=== PATIENT | female | born 1965 | race Caucasian/White ===

== ENCOUNTER 2021-02-03 06:45 | Day surgery (SDC) | payer BC ==
[~2021-02-03] VITALS: Ht 157.5 cm; Wt 89.8 kg
[~2021-02-03 06:45] MED LIST: CALCIUM250 M1 PO; FISH OIL1000 MG PO; METFORMIN500 M2 PO; VITAMIN B-12500 MCG PO
[2021-02-03 08:22] VITALS: BP 104/52
== END 2021-02-03 08:25 | disposition home or self-care (01) | DRG 951 ==
LOC: ENDO 06:45
PROVIDERS: ATTEND Surgery
PROC: 0DJD8ZZ Inspection of Lower Intestinal Tract, Via Natural or Artificial Opening Endoscopic (ICD-10-PCS; principal; 2021-02-03)
DX: Z12.11 Encounter for screening for malignant neoplasm of colon (principal); K57.30 Diverticulosis of large intestine without perforation or abscess without bleeding; K64.8 Other hemorrhoids; E11.9 Type 2 diabetes mellitus without complications; Z79.84 Long term (current) use of oral hypoglycemic drugs